=== PATIENT | male | born 1975 | race Caucasian/White ===

== ENCOUNTER 2024-08-10 13:14 | Emergency (ER) | payer BC, SELFPAY ==
[2024-08-10 13:43] LABS: % Basophils 0.4 % (0-2); % Eosinophils 0.5 % (0-6); % Immature Granulocytes 0.2 % (0-0.5); % Lymphocytes 27.8 % (20.5-51.1); % Monocytes 7.7 % (1.7-9.3); % Neutrophils 63.4 % (42.2-75.2); Absolute Eosinophils 0.1 10^3/uL (0-0.7); Absolute Lymphocytes 2.6 10^3/uL (1.2-3.4); Absolute Monocytes 0.7 10^3/uL (0.1-0.6); Hematocrit 39.5 % (39.0-52.0); Hemoglobin 12.5 g/dL (13.0-18.0); Mean Corp Hgb Conc. 31.6 g/dL (33.0-37.0); Mean Corpuscular Hgb 20.8 pg (27.0-31.0); Mean Corpuscular Volume 65.8 fL (80.0-94.0); Mean Platelet Volume 10.5 fL (7.4-10.4); Nucleated Red Blood Cells % 0 % (-); Platelet Count 299 10^3/uL (130-400); Red Cell Dist. Width 16.1 % (11.5-14.5); White Blood Cell Count 9.5 10^3/uL (4.8-10.8)
[2024-08-10 14:08] LABS: ALT (SGPT) 49 U/L (0-50); AST (SGOT) 37 U/L (17-59); Albumin 4.8 g/dl (3.5-5.0); Alkaline Phosphatase 79 U/L (38-126); Blood Urea Nitrogen 14 mg/dl (9-20); Calcium 9.6 mg/dl (8.4-10.2); Carbon Dioxide 26 mmol/L (22-30); Chloride 103 mmol/L (98-107); Glucose 161 mg/dl (70-99); Potassium 4.3 mmol/L (3.5-5.1); Sodium 143 mmol/L (135-145); Total Bilirubin 0.5 mg/dl (0.2-1.3); Total Protein 7.4 g/dl (6.3-8.2); eGFR > 60.00
[2024-08-10 14:15] LABS: Troponin I < 0.012 ng/ml
[2024-08-10 14:19] VITALS: BMI 42.9
[2024-08-10] MEDS: LOW STRENGTH ASPIRIN 243 MG PO (14:30)
[2024-08-10] MEDS: NITROSTAT (SUBLINGUAL) 0.4 MG SL (14:31)
--- NOTE | 2024-08-10 14:34 | ED.GENMED ---
History of Present Illness
General
Chief Complaint: Chest Pain
Source: patient
Time Seen by Provider: 08/10/24 14:07
History of Present Illness
History of Present Illness:
49-year-old male with past medical history of hypertension, hyperlipidemia and mbj-[id number] diabetes presenting to the emergency department for evaluation of 2 separate episodes of chest pain, first episode started yesterday in the evening
time while patient was cooking, lasted for around 1 hour and then resolved spontaneously. Patient also noted some discomfort in his left arm and said the left shoulder area/chest wall also felt a little numb. Patient states that the symptoms again
occurred this afternoon around 1 hour or so prior to arrival to the emergency department, spontaneously and also noted an associated headache. Patient states that since arriving to the ER the symptoms have improved although the chest pain is still
present rated about a 2 or 3 out of 10 and described to be more of a mild discomfort. Patient denies any fevers or infectious symptoms, recent travel, cough, pleurisy, nausea or vomiting. Patient does take a daily 81 mg aspirin. He notes that
years ago he developed chest pain and followed up with cardiology here and had a stress echo which was reportedly unremarkable and was told that he likely just needed to lose some weight which he did but states that due to life circumstances
regained most of the weight back. Patient also notes a significant family history of cardiovascular disease including his grandfather and cousin passing away in their mid 50s from acute MT. Father also has a history of angina and atrial
fibrillation.
Past History
Past History
ED Past Medical History: HTN, Hypercholesterolemia and NIDDM
ED Past Surgical History: None
Social History
Tobacco: Non-smoker
Alcohol: None
Drug: None
Personal:
Living: with family
Employment: Employed
Review of Systems
Review of Systems
All Other Systems: ROS reviewed and negative except as documented in HPI and ROS
Phy Exam
Physical Exam
Physical Exam:
GENERAL: Alert , in no apparent distress
HEAD: NCAT
EYE: conjunctiva clear
NECK: Supple
ENT: o/p clr, mmm.
CARDIAC: Regular rate and rhythm, no murmur
LUNGS: Clear breath sounds bilaterally, no acute respiratory distress, no wheezes/rales/rhonchi
NEUROLOGICAL: Alert and oriented
SKIN: Warm and dry, skin intact.
MUSCULOSKELETAL: well perfused. no edema
PSYCH: Normal and appropriate interaction.
Scores
Heart Failure Risk
Heart Failure Risk Score: Not Applicable
Heart Score for Chest Pain Patients
STEMI patient?: No
History: Moderately Suspicious
ECG: Normal
Age: >45 - <65 years
Risk Factors: 1 or 2 Risk Factors
Troponin: </= Normal Limit
Heart Score for Chest Pain Patients: 3
Heart Score Risk: 2.5% MACE over next 6 weeks
Withdrawal Assessment of Alcohol
Withdrawal Assessment Completed?: Not applicable
Course
Orders/Labs/Results
Orders:
Orders
08/10/24 13:15
Electrocardiogram (*1) Urgent
Reason for Study: Chest Pain
EKG- Treatment ONCE
08/10/24 13:34
Complete Blood Count/With Diff Urgent
Comprehensive Metabolic Panel Urgent
Troponin I Urgent
08/10/24 14:20
Aspirin Chewable [Low Strength Aspirin] 243 mg PO NOW STA
Nitroglycerin Sublingual [Nitrostat (Sublingual)] 0.4 mg SL NOW STA
CR Chest - 2 Views Urgent
Comment:
Reason For Exam: chest pain
08/10/24 14:35
Urinalysis Reflex To Culture Urgent
Date Specimen was Collected: 08/10/24
Time Specimen was Collected: 14:34
08/10/24 16:03
Troponin I Urgent
Abnormal Lab Results
08/10/24
13:34
Hgb 12.5 L g/dL
(13.0-18.0)
MCV 65.8 L fL
(80.0-94.0)
MCH 20.8 L pg
(27.0-31.0)
MCHC 31.6 L g/dL
(33.0-37.0)
RDW 16.1 H %
(11.5-14.5)
MPV 10.5 H fL
(7.4-10.4)
Absolute Monos (auto) 0.7 H 10^3/uL
(0.1-0.6)
Glucose 161 H mg/dl
(70-99)
08/10/24 13:34
08/10/24 13:34
Vital Signs
Initial and Last Documented VS:
Initial Vital Signs
Temp Pulse Resp Pulse Ox
98.4 F 95 16 98
08/10/24 13:26 08/10/24 13:26 08/10/24 13:26 08/10/24 13:26
Last Documented Vital Signs
Temp Pulse Resp BP Pulse Ox
98.4 F 82 24 118/75 98
08/10/24 13:26 08/10/24 16:15 08/10/24 16:15 08/10/24 16:03 08/10/24 16:15
MDM/Problems Addressed
Differential Diagnosis Includes:
angina, ACS, PE, pericarditis/myocarditis, muscular etiology, GERD/gastritis
MDM/Problems Addressed:
49-year-old male presenting to the emergency department for evaluation of chest discomfort that started yesterday, lasted an hour or so and then resolved spontaneously. Symptoms restarted again today and while improved in the ER is still present.
Will treat with 1 sublingual nitroglycerin tablet and remaining 243 mg of aspirin. Given patient's risk factors will also discuss case with cardiology as patient does have risk factors for cardiovascular disease and disposition could potentially
change to more inpatient evaluation if cardiology deems this appropriate. Disposition pending cardiology evaluation.
Chronic conditions affecting care: DM and HTN
*Radiology
Radiology exam reviewed: preliminary read by ED provider (normal CXR)
*Pulse Oximetry
Patient hypoxic: no
*EKG
Comparison EKG: no comparison EKG present
Heart Rate: 88
Rate: normal
Rhythm: sinus
Exchange: left axis deviation
Ischemia: no ischemia
*Manager Architectural Interpretation
Rate: normal
Rhythm: sinus
*Critical Care Note
Total Time (30-74mins, 75-104mins- exclusive of procedures): Not Applicable
Data Reviewed
Review of Other/Old Records Reveals: Testing (Stress echo done in September 2015 without any abnormalities)
Comment
Comment:
3:57 PM - seen by cardiology. recommend performing repeat trop. as long as this is WNL patient can be discharged home. Cardiology arranged for outpatient echo, nuc stress test and outpatient visit.
Patient Management
Discussion with other providers: Data Warehouse Analyst
Escalation/DeEscalation of care consider admission/obs:
Patient seen by cardiology in consultation. I scheduled the patient for outpatient stress test and echocardiogram in the coming week and outpatient visit in office in August. Patient aware of return precautions and is otherwise stable for
discharge home following his second negative troponin.
ED Attending Note
-
Portions of this chart may have been created with voice recognition software.� Occasional wrong word or��sound alike� substitutions may have occurred due to the inherent limitations of voice recognition software.
Discharge Plan
Departure
Patient Disposition: Home (Routine Discharge)
Date of Disposition: 08/10/24
Time of Disposition: 16:47
Patient with high blood pressure during this ER visit?: Yes
Discharge Problem:
Chest pain
Instructions: Chest Pain
Referrals:
Jessica Dennison PA-C [Specified Professional Personl] - 09/04/24 8:20 am (You have a follow up visit with Dr. Gomez's PA, Jessica Dennison, at the [place] office. Please call with questions. )
Activity Restrictions/Additional Instructions:
You have been arranged for an echocardiogram (ultrasound of the heart) this 08/12/2024 at 10:40 AM at the [facility] in [place].
You have also been arranged for a nuclear exercise stress test 08/20/2024 at 7:20 AM at the [facility] in [place].
Please call the cardiology office with questions.
Interventions
Interventions:
*Risk Screen - Suicide Last Done: 08/10/24 13:26
*General Assessment Last Done: 08/10/24 14:19
*Neglect/Abuse Screening Last Done: 08/10/24 13:26
ED- Fall Risk Assessment Last Done: 08/10/24 14:19
*ED COVID-19 Vaccine History Last Done: 08/10/24 14:19
*Nursing Disposition Last Done: 08/10/24 16:55
ED- Cardiac Assessment Last Done: 08/10/24 14:19
Discharge Date and Time
Print Language: ARABIC
[2024-08-10 14:55] LABS: Urine Albumin Negative (Neg - Trace); Urine Bilirubin Negative (Negative); Urine Character Clear (Clear); Urine Color Yellow; Urine Glucose Negative (Negative); Urine Ketone Negative (Negative); Urine Leukocyte Negative (Negative); Urine Nitrite Negative (Negative); Urine Occult Blood Negative (Negative); Urine Specific Gravity 1.015 (<1.030); Urine Urobilinogen Negative (Neg - 1+)
[2024-08-10 15:00] VITALS: BP 138/71
--- NOTE | 2024-08-10 15:24 | CON.CAR ---
Addendum entered and electronically signed by Sean Felix DO 08/10/24 20:44:
I saw and examined the patient.
The Marking Clerk's note was reviewed and I agree with the note.
Comment:
Plan:
Atypical chest pain with neg troponin. EKG without ischemic changes. No evidence of acute coronary event. Repeat troponin and if negative, discussed outpt ischemic eval.
Discussed echo to eval EF and for valvular heart disease
Discussed exercise stress sestamibi study to eval for ischemia
Disussed symptoms to look for and his elevated lifetime risk of cardiovascular disease in setting of DM.
Outpt follow up with Dr Gomez whom he has seen in the past
Reviewed with ER
Original Note:
Consultation
Consultation Request
Date/Time Consultation Requested: 08/10/2024
Date/Time Consultation Performed: 08/10/2024 at 1500
Requesting Provider: Rex Bella PA-C
Performing Provider: Jessica Dennison PA-C for Dr. Felix
Reason for Consultation: Chest pain
Medical History
-
History of Present Illness:
HPI: Malvin is a 49 year old male with PMH of hypertension, hyperlipidemia, DM2, and hypothyroidism. Presented to ER for evaluation of chest pain. He has history of chest pain that for started years ago. He was evaluated most recently in 2014
with stress test which was without evidence of ischemia. He was recently had chest pain starting yesterday evening while cooking. He describes it as an 'awkward' discomfort in his left upper chest, radiating into his shoulder. Pain spontaneously
resolved after short period of time last night. This morning, he had recurrence of the discomfort/awkward feeling. Symptoms this morning lasted longer and seemed slightly more severe than yesterday, so he came to ER for evaluation. Pain improved
significantly and almost resolved while in ER waiting room, down to a 1/10 in severity. In ER, he was given sublingual nitro and aspirin. With this, he has had no change in his symptoms and that remains only mild, 1/10. He denies any associated
shortness of breath or diaphoresis. He does admit to occasional headache. He is compliant with his medications at home. Blood pressure initially elevated, however improved on repeat check. Troponin negative x 1. Chest x-ray unremarkable. His
EKG shows sinus rhythm with LVH. No acute ischemic changes noted. Cardiology consulted for evaluation given recurrent chest discomfort with strong family history of multiple family members with MIs in their 50s.
PMH:
HTN
HLD
DM2
Hypothyroidism
Obesity
Past Medical History
Past Medical History: Other (In HPI)
Social History
Tobacco: Non-Smoker
Alcohol: Occasional
Drug: None
Personal:
Living: With Family
Employment: Employed
Family History
Family History: Early CAD and Cancer
Allergies / Home Medications
Allergy/AdvReac Type Severity Reaction Status Date / Time
Penicillins Allergy Unknown Verified 08/10/24 13:28
Review of Systems
-
History Source: Patient
All other systems: Negative unless noted
Physical Exam
Vital Signs
Temp Pulse Resp BP Pulse Ox
98.4 F 80 33 152/90 95
08/10/24 13:26 08/10/24 14:30 08/10/24 14:30 08/10/24 14:31 08/10/24 14:30
Lab Results
08/10/24 13:34
08/10/24 13:34
Troponin I < 0.012 ng/ml 08/10/24 13:34
Physical Exam
General: Well Developed, Well Nourished and No Apparent Distress
HEENT: Normocephalic, Anicteric and Moist Mucous Membranes
Respiratory: Clear and Non Labored Respirations
Cardiac: S1/S2 and Regular Rhythm
Musculoskeletal: No Clubbing, No Cyanosis and No Edema
Skin: Warm and Dry
Neuro: AO x 3 and Nonfocal/Grossly Intact
Psych: Calm
Impression / Plan
-
[facility]: Dr. ALEXANDRIA Gomez, seen 2014
Impression:
Presented with chest discomfort
Headache
HTN
HLD
DM2
Hypothyroidism
Obesity
Stress echo 09/28/2015: Normal stress echocardiogram with normal hemodynamic response to exercise. Low risk stress test.
Plan:
-Presented for evaluation of chest discomfort. Started initially last night while cooking. Resolved spontaneously.
-He had recurrent symptoms again this morning which lasted longer, prompting ER evaluation. Pain mostly resolved while in ER waiting room, down to 1/10 in severity.
-Troponin negative x 1. Would repeat.
-EKG sinus rhythm with no acute ischemic changes.
-Prior stress test in 2014 normal. Continue baby aspirin, rosuvastatin.
-Blood pressure elevated on arrival to ER, however improved on repeat. Would continue OP losartan.
-Continue on Ozempic and metformin for history of DM 2.
-If repeat troponin remains stable, okay for discharge with close outpatient follow-up which has been arranged.
-He has been arranged for outpatient exercise nuclear stress test 08/20 to evaluate for coronary artery disease.
-Echo arranged as outpatient for 08/12 to assess EF and for valvular disease.
HPI: Malvin is a 49 year old male with PMH of hypertension, hyperlipidemia, DM2, and hypothyroidism. Presented to ER for evaluation of chest pain. He has history of chest pain that for started years ago. He was evaluated most recently in 2014
with stress test which was without evidence of ischemia. He was recently had chest pain starting yesterday evening while cooking. He describes it as an 'awkward' discomfort in his left upper chest, radiating into his shoulder. Pain spontaneously
resolved after short period of time last night. This morning, he had recurrence of the discomfort/awkward feeling. Symptoms this morning lasted longer and seemed slightly more severe than yesterday, so he came to ER for evaluation. Pain improved
significantly and almost resolved while in ER waiting room, down to a 1/10 in severity. In ER, he was given sublingual nitro and aspirin. With this, he has had no change in his symptoms and that remains only mild, 10/30. He denies any associated
shortness of breath or diaphoresis. He does admit to occasional headache. He is compliant with his medications at home. Blood pressure initially elevated, however improved on repeat check. Troponin negative x 1. Chest x-ray unremarkable. His
EKG shows sinus rhythm with LVH. No acute ischemic changes noted. Cardiology consulted for evaluation given recurrent chest discomfort with strong family history of multiple family members with MIs in their 50s.
Data Reviewed
-
EKG: Tracing Personally Visualized and interpreted
Radiology: Report Reviewed by me
Labs: Labs Reviewed by me
Old Records: Reviewed
[2024-08-10 16:03] VITALS: BP 118/75
[2024-08-10 16:57] LABS: Troponin I < 0.012 ng/ml
== END 2024-08-10 16:55 | disposition home or self-care (01) ==
LOC: EMR 13:14
PROVIDERS: Emergency Medicine; Physician Assistant Medical; EMERGENCY PHYSICIAN Emergency Medicine; FAMILY PHYSICIAN Nurse Practitioner Family
DX: R07.89 Other chest pain (principal); I11.9 Hypertensive heart disease without heart failure; E78.00 Pure hypercholesterolemia, unspecified; E11.9 Type 2 diabetes mellitus without complications; E03.9 Hypothyroidism, unspecified; E66.9 Obesity, unspecified; Z82.49 Family history of ischemic heart disease and other diseases of the circulatory system
CPT/HCPCS: 99283; 71046; 80053; 81003; 84484; 85025; 93005

== ENCOUNTER → 2024-08-12 10:37 | Outpatient (REF) | payer BC, SELFPAY | LOC: HWRCS 10:37 | PROVIDERS: ATTENDING PHYSICIAN Internal Medicine Cardiovascular Disease | DX: R07.89 Other chest pain (principal); I10 Essential (primary) hypertension | CPT/HCPCS: 93306; Q9957 ==

== ENCOUNTER → 2024-08-20 06:58 | Outpatient (REF) | payer BC, SELFPAY | LOC: DHCBC/DCA 06:58 | PROVIDERS: ATTENDING PHYSICIAN Internal Medicine Cardiovascular Disease | DX: R07.89 Other chest pain (principal); I10 Essential (primary) hypertension; E78.2 Mixed hyperlipidemia; E66.01 Morbid (severe) obesity due to excess calories; E11.9 Type 2 diabetes mellitus without complications; Z82.49 Family history of ischemic heart disease and other diseases of the circulatory system | CPT/HCPCS: 78452; 93017; A9500 ==